=== PATIENT | female | born 1970 | race Caucasian/White ===

== ENCOUNTER → 2018-04-10 15:51 | Outpatient (CLI) | payer OTHER, SELFPAY ==
--- NOTE | 2018-04-10 15:55 | RAD_ITS ---
STUDY: X-RAY - LEFT ANKLE REASON FOR EXAM: Female, 48 years old. Left ankle pain and injury TECHNIQUE: 3 view(s) of the ankle. COMPARISON: None. FINDINGS: Normal visualized distal tibia and fibula. Normal medial and lateral malleoli. Normal tibiotalar articulation and ankle mortise. Normal visualized talus and calcaneus. The visualized subtalar, talonavicular, calcaneocuboid and tarsal articulations are normal. The soft tissue structures are unremarkable. RAD/Ankle min 3 Views IMPRESSION: Normal x-ray examination of the ankle. Electronically Signed: Armando Webber DO at 10:45 EDT Tel , Service support ,
--- NOTE | 2018-04-10 16:03 | RAD_ITS ---
STUDY: X-RAY - LEFT FOOT CLINICAL: Female, 48 years old. Pain and injury TECHNIQUE: 3 view(s) of the foot. COMPARISON: None. FINDINGS: Normal talus, calcaneus, and tarsal bones. Normal visualized subtalar, talonavicular, calcaneocuboid, tarsal and tarsometatarsal articulations. Normal metatarsi. Normal metatarsophalangeal joint of the great toe. Normal tibial and fibular sesamoid bones. Normal interphalangeal joint of the great toe. Normal phalanges of the great toe. Normal second through fifth metatarsophalangeal joints. Normal interphalangeal joints and phalanges of the lesser toes. The soft tissue structures are unremarkable. RAD/Foot min 3 Views IMPRESSION: Normal x-ray examination of the foot. Electronically Signed: Neri Prescott MD at 7:33 EDT Tel , Service support ,
== END ==
LOC: RAD 15:53
PROVIDERS: Family Provider Nurse Practitioner Family; PCP Nurse Practitioner Family; Visit Provider Nurse Practitioner Family
DX: M25.572 Pain in left ankle and joints of left foot (principal)
CPT/HCPCS: 73610; 73630

== ENCOUNTER → 2018-11-30 10:29 | Outpatient (CLI) | payer OTHER, SELFPAY ==
[2018-11-30 10:49] LABS: Absolute Lymphocyte Count 4.36 X10^3/ul (0.83-4.51); Absolute Neutrophil Count 6.3 X10^3/uL (2.0-7.7); Basophil# 0.01 X10^3/uL; Basophil% 0.1 % (0-1); Eosinophil# 0.08 X10^3/uL; Eosinophils% 0.7 % (0-5); Hematocrit 43.7 % (37-47); Lymphocyte # 4.36 X10^3/ul (4.0); Lymphocyte % 37.3 % (19-41); Mean Corp Hgb Conc 34.3 g/gl (32-36); Mean Corpuscular Hgb 33.3 pg (27.0-32.0); Mean Corpuscular Volume 96.9 fL (81-99); Mean Platelet Vol. 9.5 fl (6.2-12.0); Monocyte# 0.96 X10^3/uL; Monocyte% 8.2 % (0-10); Neutrophil # 6.26 X10^3/uL (2.7-7.7); Neutrophil % 53.4 % (47-70); POSITIVE COUNT NO; POSITIVE DIFFERENTIAL NO; POSITIVE MORPHOLOGY NO; Platelet Count 345 K/mm3 (150-450); RBC Distribution Width CV 13.1 % (11.6-14.6); RBC Distribution Width SD 46.1 fl (35.1-43.9); Red Blood Count 4.51 M/mm3 (4.2-5.4); White Blood Count 11.7 K/mm3 (4.4-11.0)
[2018-11-30 11:21] LABS: ALB/GLOB Ratio 0.8 RATIO (0.9-2.4); AST(SGOT) 23 U/L (15-37); Alanine Aminotransfer ALT/SGPT 21 U/L (13-56); Albumin, Serum 3.2 g/dL (3.2-5.0); Alkaline Phosphatase 67 U/L (45-117); Anion Gap 10 (5-15); BUN 19 mg/dL (7-18); BUN/Creat Ratio 17.9 RATIO (10-20); Calcium,Total 8.8 mg/dL (8.5-10.1); Chloride 99 mmol/L (98-107); Creatinine, Serum 1.06 mg/dL (0.55-1.02); EST Glomerular Filtration Rate 59 mL/min (>60); Est Glom Filt Rate - Afr Amer 71 mL/min (>60); Globulin 4.2 g/dL (2.2-4.2); Glucose 120 mg/dL (74-106); Potassium 2.6 mmol/L (3.5-5.1); Protein, Total 7.4 g/dL (6.4-8.2); Sodium Level 140 mmol/L (136-145)
== END ==
LOC: LAB 10:31
PROVIDERS: Family Provider Nurse Practitioner Family; PCP Nurse Practitioner Family; Referring Provider Nurse Practitioner Family; Visit Provider Nurse Practitioner Family
DX: R06.02 Shortness of breath (principal); R06.2 Wheezing
CPT/HCPCS: 36415; 80053; 85025; 85379; A4216

== ENCOUNTER 2018-11-30 12:17 | Emergency (ER) | payer OTHER, SELFPAY ==
[2018-11-30 12:18] VITALS: BP 117/75; PULSE 78; RESP 16; TEMP 36.6; O2SAT 98; BMI 25.7
[2018-11-30 12:47] VITALS: BP 119/85; PULSE 78; RESP 16; TEMP 36.6; O2SAT 94
--- NOTE | 2018-11-30 13:02 | RAD_ITS ---
STUDY: X-RAY CHEST REASON FOR EXAM: Female, 48 years old. Chest pressure, wheezing and cough. TECHNIQUE: PA and lateral views of the chest. COMPARISON: None. FINDINGS: The lungs are clear and expanded. Scattered calcified granulomas. There is no demonstrated pleural abnormality. Normal size heart. Normal mediastinum and adrien. Normal visualized pulmonary arteries. Normal visualized aortic arch and descending thoracic aorta. There is demineralization of the osseous structures. Normal visualized ribs, clavicles, and shoulders. There is no demonstrated abnormality of the visualized soft tissue structures of the upper abdomen. RAD/Chest PA and Lateral IMPRESSION: Normal x-ray examination of the chest. Electronically Signed: Omar Ceja, at 13:48 EDT , Service support ,
--- NOTE | 2018-11-30 13:02 | EKG12_ITS ---
Test Reason : ABNORMAL LABS Blood Pressure : / mmHG Vent. Rate : 079 BPM Atrial Rate : 079 BPM P-R Int : 158 ms QRS Dur : 092 ms QT Int : 380 ms P-R-T Axes : 044 023 -21 degrees QTc Int : 435 ms Normal sinus rhythm Nonspecific T wave abnormality Abnormal ECG Confirmed by LUCÍA FELDMAN ([id number]), fashion editor VAN CURIEL ([id number]) on 12/04/2018 2:09:39 PM Referred By: Yash Vasquez Confirmed By:LUCÍA FELDMAN
--- NOTE | 2018-11-30 13:28 | ED.DCSUM_ITS ---
- ER Visit Summary Date of Service: 11/30/18 Chief Complaint: Abnormal labs History of Present Illness: The patient is a 48 F who presents with hypokalemia that was noted today. Patient had labs drawn this morning and showed a potassium of 2.6. Patient states she was also told she had an elevated white bl ood cell count but was not told what the white blood cell count was. Patient admits to some fatigue. Patient states she has been having a cough and some shortness of breath recently. Patient states she has been using her inhaler more frequently. Patient denies any chest pain. Patient does admit to some rhinorrhea. Patient also admits to a headache. Physical Examination: Vital signs are stable. Patient is afebrile. Patient is in no acute distress. Oral mucosa is pink and moist. Neck is supple. Trachea is midline. There is no JVD noted. Heart was regular rate and rhythm. Lungs are clear and equal bilateral. Abdomen is soft. Bowel sounds are normal. There is no tenderness. There is no guarding noted. Skin is warm dry. Cranial nerves II through XII are intact. There are no focal motor or sensory deficits noted. The remaining physical exam is within normal limits. Test Results: Lab results were done here and were reviewed. Potassium was 2.6. White blood cell count was 11.2. PA and lateral chest x-ray was obtained. There is no acute cardiopulmonary process noted. EKG showed normal sinus rhythm with a rate of 79. There are nonspecific ST-T wave changes noted. There are no acute changes with the T waves. Emergency Department Course and Treatment: Patient was given 10 mEq of IV potassium and 40 mEq of oral potassium. Patient was advised that her potassium was likely low due to her increased use of her inhaler. Patient was advised that her cough is most likely related to a viral upper respiratory infection. Patient was instructed to follow-up with her primary care physician in 5 to 7 days. Patient understood and was agreeable with the plan. All questions were a nswered. Disposition: Discharge home Impression: 1. Hypokalemia 2. Viral upper respiratory infection This note was generated with inContactation software. It may contain incorrect words, spelling, and punctuation that were not noted in review of the chart prior to signing ED Disposition - Plan for ED Patient: Disposition: Home or Assisted Living Diagnosis: Hypokalemia, Viral upper respiratory infection Referrals: Yash Vasquez, [employer] SERV[employer] CAPTAIN-C [Primary Care Provider] - 5-7 Days
[2018-11-30] MEDS: Potassium Chloride 10mEq/100mL 10 MEQ/100 ML IV.SOLN. 100 MEQ IV BOLUS (14:02)
[2018-11-30 15:11] VITALS: BP 132/89; PULSE 75; RESP 20; TEMP 37; O2SAT 95
[2018-11-30 15:57] VITALS: BP 110/79; PULSE 84; RESP 16; O2SAT 94
== END 2018-11-30 15:58 | disposition home or self-care (01) ==
PROVIDERS: Emergency Provider Emergency Medicine; Family Provider Nurse Practitioner Family; PCP Nurse Practitioner Family
DX: E87.6 Hypokalemia (principal); J06.9 Acute upper respiratory infection, unspecified; J45.909 Unspecified asthma, uncomplicated; G43.909 Migraine, unspecified, not intractable, without status migrainosus; Z72.0 Tobacco use
CPT/HCPCS: 71046; 93005; 96365; 99285

== ENCOUNTER → 2020-03-07 | Outpatient (CLI) | payer BC, SELFPAY | END | disposition home or self-care (01) | LOC: MTDU 18:02 | PROVIDERS: PCP Nurse Practitioner Family; Referring Provider Nurse Practitioner Family; Visit Provider Nurse Practitioner Family | DX: Z20.828 Contact with and (suspected) exposure to other viral communicable diseases (principal) | CPT/HCPCS: 87635; 94799; U0003 ==

== ENCOUNTER 2020-05-02 14:31 | Emergency (ER) | payer BC, SELFPAY ==
[2020-05-02 14:33] VITALS: BP 129/79; PULSE 88; RESP 18; TEMP 36.7; O2SAT 97; BMI 23.4
--- NOTE | 2020-05-02 14:45 | ED.DCSUM_ITS ---
History of Present Illness Chief Complaint: Headache Informant: Patient Onset: Days Narrative: A 10-year-old female with past medical history of migraines presents with complaint of tractable migraine x3 days. She has pain in a band distribution that is throbbing. She has nausea and dry heaves with photophobia and phonophobia. She states this is typical to previous headaches, but this time she was not able to keep down her Maxalt. She has had CT brain in the past 1-2 years for this and it was normal. Denies fevers, chills, neck pain, vision changes, or focal motor or sensory changes. Past Medical History - Allergies and Home Meds Allergies/Adverse Reactions: Allergies Penicillins [PCN] Allergy (Verified 05/02/20 14:35) Hives erythromycin base Adverse Reaction (Verified 05/02/20 14:35) Vomiting Primary Care Physician: Yash Vasquez SILVERWARE SUPERVISOR, SILVERWARE SUPERVISOR-C [Primary Care Provider] - Past Medical History: - - migraines Smoking Status: Current every day smoker Review of Systems General: Denies: Chills, Fever, Sweats Eyes: Denies: Visual changes - bilaterally, Diplopia ENT: Denies: Rhinorrhea, Sore throat Cardiovascular: Denies: Chest pain, Palpitations Respiratory: Denies: Dyspnea, Cough, Dyspnea on exertion Gastrointestinal: Reports: Nausea, Vomiting. Denies: Abdominal pain, Diarrhea, Melena, Hematochezia Musculoskeletal: Denies: Neck pain Skin: Denies: Rash Neurological: Reports: Headache. Denies: Weakness, Parasthesia, Numbness Physical Exam Vital Signs/Narrative: Vital Signs Temp Pulse Resp BP Pulse Ox 05/02/20 14:33 98.0 F 88 18 129/79 H 97 Inital Vital Signs reviewed: Yes General: Well nourished, Well developed, No Acute Distress Head: Normocephalic, Atraumatic Eyes: Perrl, EOMI ENT: Moist mucous membranes, No rhinorrhea Neck: Supple, Nontender Cardiovascular: Regular rate, Regular rhythm, No murmurs Respiratory: No distress, CTA bilaterally, Chest nontender Back: Normal Inspection Extremities: No edema Skin: Normal color, No rash Neurological: Alert, Oriented x3, Cranial nerves II-XII grossly intact, Normal Strength, Normal Sensation Psychological: Normal affect, Normal Mood Diagnostic/Tx/Re-eval - Medical Decision Making Her with a migraine similar to her previous migraines in the past. She appears uncomfortable but nontoxic. Vital signs within normal limits. Normal neurological exam. She states she has had a normal head CT within the last 1 to 2 years. No indication for repeat imaging here today. She was given IV cocktail of Toradol, Compazine, Benadryl, and fluids and is feeling significantly improved. I provided prescription for Zofran in case she has this recur again she can take this before her home Maxalt. Discussed return precautions. She was agreeable and discharged home in stable condition. ED Disposition - Plan for ED Patient: Disposition: Home or Assisted Living Diagnosis: Migraine Instructions: ED Headache Unspecified Prescriptions: Ondansetron [Zofran Odt] 4 mg PO Q8H PRN PRN #10 tab PRN Reason: Nausea Transmission Status: Pending to [id number] Referrals: Yash Vasquez SILVERWARE SUPERVISOR, SILVERWARE SUPERVISOR-C [Primary Care Provider] -
[2020-05-02] MEDS: 0.9% Normal Saline 1,000 ML 999 ML IV (15:07)
[2020-05-02] MEDS: proCHLORPERazine 10 MG/2 ML Vial IV (15:07)
[2020-05-02] MEDS: DiphenhydrAMINE 50 MG/ML Syringe 25 MG IV (15:07)
[2020-05-02] MEDS: Ketorolac 15 MG/ML Vial IM (15:08)
[2020-05-02 16:00] VITALS: BP 102/69; PULSE 75; RESP 16; O2SAT 99
== END 2020-05-02 16:14 | disposition home or self-care (01) ==
PROVIDERS: Emergency Provider Physician Assistant; PCP Nurse Practitioner Family
DX: G43.909 Migraine, unspecified, not intractable, without status migrainosus (principal); F17.200 Nicotine dependence, unspecified, uncomplicated; Z79.899 Other long term (current) drug therapy
CPT/HCPCS: 96361; 96372; 96374; 96375; 99282; J7030; A4216

== ENCOUNTER → 2020-09-15 15:43 | Outpatient (CLI) | payer OTHER, SELFPAY ==
[2020-09-15 16:25] LABS: Hematocrit 41.5 % (37-47); Hemoglobin 13.5 g/dL (12.0-15.0); Mean Corp Hgb Conc 32.5 g/dL (32-36); Mean Corpuscular Hgb 30.7 pg (27.0-32.0); Mean Corpuscular Volume 94.3 fL (81-99); Mean Platelet Vol. 10.9 fl (6.2-12.0); Platelet Count 268 K/mm3 (150-450); RBC Distribution Width CV 12.9 % (11.6-14.6); RBC Distribution Width SD 44.8 fl (35.1-43.9); White Blood Count 8.4 K/mm3 (4.4-11.0)
[2020-09-15 18:30] LABS: ALB/GLOB Ratio 1.2 RATIO (0.9-2.4); AST(SGOT) 24 U/L (15-37); Alanine Aminotransfer ALT/SGPT 25 U/L (13-56); Albumin, Serum 3.7 g/dL (3.2-5.0); Alkaline Phosphatase 54 U/L (45-117); Anion Gap 7 (5-15); BUN 20 mg/dL (7-18); BUN/Creat Ratio 25.8 RATIO (10-20); Calcium,Total 8.9 mg/dL (8.5-10.1); Chloride 100 mmol/L (98-107); Cholesterol 199 mg/dL (200); Creatinine, Serum 0.78 mg/dL (0.55-1.02); EST Glomerular Filtration Rate 84 mL/min (>60); Est Glom Filt Rate - Afr Amer 101 mL/min (>60); Globulin 3.2 g/dL (2.2-4.2); Glucose 86 mg/dL (74-106); High Density Lipoprotein 72 mg/dL; Potassium 2.6 mmol/L (3.5-5.1); Protein, Total 6.9 g/dL (6.4-8.2); Sodium Level 138 mmol/L (136-145); Triglycerides 74 mg/dL; Very Low Density Lipoprotein 15 mg/dL (5-40)
== END ==
PROVIDERS: PCP Nurse Practitioner Family; Referring Provider Nurse Practitioner Family; Visit Provider Nurse Practitioner Family
DX: I10 Essential (primary) hypertension (principal); E78.5 Hyperlipidemia, unspecified
CPT/HCPCS: 36415; 80053; 80061; 85027

== ENCOUNTER 2020-09-24 08:02 | Emergency (ER) | payer OTHER, SELFPAY ==
[2020-09-24 08:02] VITALS: BP 117/73; PULSE 78; RESP 16; TEMP 36.2; O2SAT 99; BMI 24.0
--- NOTE | 2020-09-24 08:32 | ED.DCSUM_ITS ---
History of Present Illness Chief Complaint: Dizziness Narrative: Patient presenting for evaluation secondary to dizziness and a headache. Patient has an underlying history of migraine headaches. She intermittently will get these. Patient states that she is having a onset of a migraine headache today that is associated with a frontal throbbing and some visual auras. She was concerned because this also was associated with dizziness. She describes this dizziness as a lightheadedness type sensation, denies that she has any cuts in her visual harden, difficulty speaking, numbness, or weakness. No recent head injuries infectious signs or symptoms neck stiffness or skin rashes. Patient tells me that she has a history of poor fluid intake and also potentially gets low potassium from time to time and she feels that that could be the cause of this. She denies any chest pain or palpitations associated with this. Review of systems otherwise negative. Past Medical History - Allergies and Home Meds Allergies/Adverse Reactions: Allergies Penicillins [PCN] Allergy (Verified 09/24/20 08:04) Hives erythromycin base Adverse Reaction (Verified 09/24/20 08:04) Vomiting Primary Care Physician: Yash Vasquez CIGARET[employer] CARTON SEALER, C[employer]AR[employer] CARTON SEALER-C [Primary Care Provider] - Prior records reviewed: Yes Past Medical History: - - Migraine headaches Smoking Status: Current every day smoker Alcohol: None Drugs: None Review of Systems All systems negative except as indicated General: Denies: Chills, Fever, Sweats Eyes: Reports: - - Visual auras ENT: Denies: Rhinorrhea, Sore throat Cardiovascular: Denies: Chest pain, Palpitations Respiratory: Denies: Dyspnea, Cough, Dyspnea on exertion Gastrointestinal: Denies: Abdominal pain, Nausea, Vomiting, Diarrhea, Melena, Hematochezia Genitourinary: Denies: Dysuria, Hematuria, Frequency Musculoskeletal: Denies: Back pain, Extremity Pain Skin: Denies: Rash, Wounds Neurological: Reports: Headache, - - Dizziness Physical Exam Vital Signs/Narrative: Vital Signs Temp Pulse Resp BP Pulse Ox 09/24/20 08:02 97.2 F L 78 16 117/73 99 General: Well nourished, Well developed Head: NC, AT. Negative for: Temporary Artery Tenderness, Vesicular Rash, Sinus Tenderness Eyes: Perrl, EOMI, - - Funduscopy is limited secondary to miosis but no obvious evidence of retinal hemorrhages ENT: Moist mucous membranes, No rhinorrhea, - - No carotid bruits are noted Neck: Supple, No Lymphadenopathy, No JVD, Nontender, No Meningismus Cardiovascular: Regular rate, Regular rhythm, No murmurs Respiratory: No distress, CTA bilaterally, Chest nontender Abdomen: Soft, Nontender, Nondistended, Normal bowel sounds Back: Nontender, Normal Inspection Extremities: Nontender, No edema Skin: Normal color, No rash Neuro: Alert, Oriented x3, Cranial nerves II-XII grossly intact, Normal Strength, Normal Sensation, Normal DTR, Normal Gait Psychological: Normal affect Diagnostic/Tx/Re-eval Laboratory Data 09/24/20 09/24/20 08:42 08:42 WBC 6.8 RBC 4.39 Hgb 13.4 Hct 41.7 MCV 95.0 MCH 30.5 MCHC 32.1 RDW Std Deviation 45.9 H RDW Coeff of Teresa 13.1 Plt Count 298 MPV 10.3 Immature Gran % (Auto) 0.100 Neut % (Auto) 47.9 Lymph % (Auto) 36.4 [place] % (Auto) 7.6 Eos % (Auto) 6.7 H Baso % (Auto) 1.3 H Absolute Neuts (auto) 3.3 Absolute Lymphs (auto) 2.48 Nucleated RBC % 0 Sodium 142 Potassium 3.2 L Chloride 106 Carbon Dioxide 30.0 Anion Gap 6 BUN 8 Creatinine 0.79 Estim Creat Clear Calc 74.39 Est GFR (MDRD) Af Amer 99 Est GFR (MDRD) Non-Af 82 BUN/Creatinine Ratio 10.1 Glucose 106 Calcium 8.8 - Medical Decision Making Patient presented secondary to an onset of a headache with some lightheadedness. She has normal cerebellar testing, normal [id number], and an otherwise benign exam I do not feel that imaging work-up is indicated. Laboratory work-up did indicate the patient to have very mild hypokalemia of which she was informed. Patient was treated with Benadryl Compazine Toradol and 1 L normal saline. Repeat evaluation of the patient at 0920 shows her to have symptomatic improvement. This point I feel the patient is appropriate for discharge. Patient will follow-up with primary care. ED Disposition - Plan for ED Patient: Disposition: Home or Assisted Living Diagnosis: Migraine headache Referrals: Yash Vasquez CIGARET[employer] CARTON SEALER, C[employer]ARET[employer] CARTON SEALER-C [Primary Care Provider] - As Needed
[2020-09-24] MEDS: Ketorolac 15 MG/ML Vial IV (08:40)
[2020-09-24] MEDS: 0.9% Normal Saline 1,000 ML 999 ML IV (08:40)
[2020-09-24] MEDS: DiphenhydrAMINE 50 MG/ML Syringe 25 MG IV (08:42)
[2020-09-24] MEDS: proCHLORPERazine 10 MG/2 ML Vial IV (08:42)
[2020-09-24 08:49] LABS: Absolute Lymphocyte Count 2.48 X10^3/uL (0.83-4.51); Absolute Neutrophil Count 3.3 X10^3/uL (2.0-7.7); Basophil# 0.09 X10^3/uL; Basophil% 1.3 % (0-1); Eosinophil# 0.46 X10^3/uL; Eosinophils% 6.7 % (0-5); Hematocrit 41.7 % (37-47); Hemoglobin 13.4 g/dL (12.0-15.0); Lymphocyte # 2.48 X10^3/ul (4.0); Lymphocyte % 36.4 % (19-41); Mean Corp Hgb Conc 32.1 g/dL (32-36); Mean Corpuscular Hgb 30.5 pg (27.0-32.0); Mean Platelet Vol. 10.3 fl (6.2-12.0); Monocyte# 0.52 X10^3/uL; Monocyte% 7.6 % (0-10); NRBC Flagged by Analyzer 0 % (0-5); Neutrophil # 3.26 X10^3/uL (2.7-7.7); Neutrophil % 47.9 % (47-70); Platelet Count 298 K/mm3 (150-450); RBC Distribution Width CV 13.1 % (11.6-14.6); RBC Distribution Width SD 45.9 fl (35.1-43.9); Red Blood Count 4.39 M/mm3 (4.2-5.4); White Blood Count 6.8 K/mm3 (4.4-11.0)
[2020-09-24 09:00] LABS: Anion Gap 6 (5-15); BUN 8 mg/dL (7-18); BUN/Creat Ratio 10.1 RATIO (10-20); Calcium,Total 8.8 mg/dL (8.5-10.1); Chloride 106 mmol/L (98-107); Creatinine, Serum 0.79 mg/dL (0.55-1.02); EST Glomerular Filtration Rate 82 mL/min (>60); Est Glom Filt Rate - Afr Amer 99 mL/min (>60); Estimated Creatinine Clearance 74.39 ml/min; Glucose 106 mg/dL (74-106); Potassium 3.2 mmol/L (3.5-5.1); Sodium Level 142 mmol/L (136-145)
[2020-09-24 10:06] VITALS: BP 108/74; PULSE 62; RESP 15; O2SAT 98
== END 2020-09-24 10:07 | disposition home or self-care (01) ==
PROVIDERS: Emergency Provider Emergency Medicine; PCP Nurse Practitioner Family
DX: G43.909 Migraine, unspecified, not intractable, without status migrainosus (principal); F17.200 Nicotine dependence, unspecified, uncomplicated
CPT/HCPCS: 80048; 85025; 96361; 96374; 96375; 99283; J7030

== ENCOUNTER → 2021-01-23 15:20 | Outpatient (CLI) | payer OTHER, SELFPAY ==
[2021-01-23 15:58] LABS: Hematocrit 44.9 % (37-47); Hemoglobin 15.1 g/dL (12.0-15.0); Mean Corp Hgb Conc 33.6 g/dL (32-36); Mean Corpuscular Hgb 32.3 pg (27.0-32.0); Mean Corpuscular Volume 95.9 fL (81-99); Mean Platelet Vol. 11.1 fl (6.2-12.0); Platelet Count 251 K/mm3 (150-450); RBC Distribution Width CV 12.9 % (11.6-14.6); RBC Distribution Width SD 45.7 fl (35.1-43.9); Red Blood Count 4.68 M/mm3 (4.2-5.4); White Blood Count 8.6 K/mm3 (4.4-11.0)
[2021-01-23 16:44] LABS: AST(SGOT) 19 U/L (15-37); Alanine Aminotransfer ALT/SGPT 21 U/L (13-56); Albumin, Serum 3.5 g/dL (3.2-5.0); Alkaline Phosphatase 67 U/L (45-117); Anion Gap 9 (5-15); BUN 15 mg/dL (7-18); BUN/Creat Ratio 16.8 RATIO (10-20); Calcium,Total 8.7 mg/dL (8.5-10.1); Chloride 101 mmol/L (98-107); Creatinine, Serum 0.89 mg/dL (0.55-1.02); EST Glomerular Filtration Rate 71 mL/min (>60); Est Glom Filt Rate - Afr Amer 86 mL/min (>60); Globulin 3.6 g/dL (2.2-4.2); Glucose 96 mg/dL (74-106); Potassium 3.1 mmol/L (3.5-5.1); Protein, Total 7.1 g/dL (6.4-8.2); Sodium Level 137 mmol/L (136-145); T4 Free Direct 1.06 ng/dL (0.76-1.46); Thyroid Stim Hormone (TSH) 0.78 uIU/mL (0.358-3.74)
== END ==
PROVIDERS: PCP Nurse Practitioner Family; Visit Provider Nurse Practitioner Family
DX: G43.009 Migraine without aura, not intractable, without status migrainosus (principal); E87.6 Hypokalemia; R53.82 Chronic fatigue, unspecified; R68.89 Other general symptoms and signs
CPT/HCPCS: 36415; 80053; 84439; 84443; 85027

== ENCOUNTER → 2021-03-18 15:45 | Outpatient (CLI) | payer OTHER, SELFPAY ==
[2021-03-18 17:14] LABS: Hematocrit 42.7 % (37-47); Hemoglobin 14.8 g/dL (12.0-15.0); Mean Corp Hgb Conc 34.7 g/dL (32-36); Mean Corpuscular Hgb 33.1 pg (27.0-32.0); Mean Corpuscular Volume 95.5 fL (81-99); Mean Platelet Vol. 11.1 fl (6.2-12.0); Platelet Count 260 K/mm3 (150-450); RBC Distribution Width CV 13.2 % (11.6-14.6); RBC Distribution Width SD 46.6 fl (35.1-43.9); Red Blood Count 4.47 M/mm3 (4.2-5.4); White Blood Count 9.6 K/mm3 (4.4-11.0)
[2021-03-18 17:39] LABS: AST(SGOT) 18 U/L (15-37); Alanine Aminotransfer ALT/SGPT 24 U/L (13-56); Albumin, Serum 3.9 g/dL (3.2-5.0); Alkaline Phosphatase 57 U/L (45-117); Anion Gap 8 (5-15); BUN 18 mg/dL (7-18); BUN/Creat Ratio 21.4 RATIO (10-20); Calcium,Total 9.4 mg/dL (8.5-10.1); Chloride 99 mmol/L (98-107); Cholesterol 239 mg/dL (200); Creatinine, Serum 0.84 mg/dL (0.55-1.02); EST Glomerular Filtration Rate 76 mL/min (>60); Est Glom Filt Rate - Afr Amer 92 mL/min (>60); Globulin 3.9 g/dL (2.2-4.2); Glucose 88 mg/dL (74-106); High Density Lipoprotein 85 mg/dL; Potassium 2.9 mmol/L (3.5-5.1); Protein, Total 7.8 g/dL (6.4-8.2); Sodium Level 136 mmol/L (136-145); Triglycerides 121 mg/dL; Very Low Density Lipoprotein 24 mg/dL (5-40)
== END ==
PROVIDERS: PCP Nurse Practitioner Family; Visit Provider Nurse Practitioner Family
DX: E78.5 Hyperlipidemia, unspecified (principal); I10 Essential (primary) hypertension
CPT/HCPCS: 36415; 80053; 80061; 85027

== ENCOUNTER → 2021-05-04 | Outpatient (CLI) | payer OTHER, SELFPAY | END | disposition home or self-care (01) | LOC: LABSPEC 05-05 13:48 | PROVIDERS: PCP Nurse Practitioner Family; Referring Provider Physician Assistant Surgical; Visit Provider Physician Assistant Surgical | DX: Z11.52 Encounter for screening for COVID-19 (principal) | CPT/HCPCS: 87635; U0005; U0003 ==

== ENCOUNTER → 2022-03-25 | Outpatient (CLI) | payer BC, SELFPAY ==
[2022-03-25 15:59] LABS: Hematocrit 46.8 % (37-47); Hemoglobin 15.7 g/dL (12.0-15.0); Mean Corp Hgb Conc 33.5 g/dL (32-36); Mean Corpuscular Hgb 31.2 pg (27.0-32.0); Mean Platelet Vol. 10.8 fl (6.2-12.0); Platelet Count 238 K/mm3 (150-450); RBC Distribution Width CV 14.6 % (11.6-14.6); RBC Distribution Width SD 50.1 fl (35.1-43.9); Red Blood Count 5.03 M/mm3 (4.2-5.4); White Blood Count 6.6 K/mm3 (4.4-11.0)
[2022-03-25 16:40] LABS: AST(SGOT) 19 U/L (15-37); Alanine Aminotransfer ALT/SGPT 21 U/L (13-56); Albumin, Serum 3.6 g/dL (3.2-5.0); Alkaline Phosphatase 67 U/L (45-117); Anion Gap 8 (5-15); BUN 15 mg/dL (7-18); BUN/Creat Ratio 17.1 RATIO (10-20); Calcium,Total 9.2 mg/dL (8.5-10.1); Chloride 98 mmol/L (98-107); Cholesterol 223 mg/dL (200); Creatinine, Serum 0.88 mg/dL (0.55-1.02); EST Glomerular Filtration Rate 72 mL/min (>60); Est Glom Filt Rate - Afr Amer 87 mL/min (>60); Globulin 3.5 g/dL (2.2-4.2); Glucose 101 mg/dL (74-106); High Density Lipoprotein 76 mg/dL; Potassium 2.6 mmol/L (3.5-5.1); Protein, Total 7.1 g/dL (6.4-8.2); Sodium Level 140 mmol/L (136-145); Triglycerides 80 mg/dL; Very Low Density Lipoprotein 16 mg/dL (5-40)
== END | disposition home or self-care (01) ==
LOC: LAB 15:16
PROVIDERS: PCP Nurse Practitioner Family; Referring Provider Nurse Practitioner Family; Visit Provider Nurse Practitioner Family
DX: J44.9 Chronic obstructive pulmonary disease, unspecified (principal); D58.2 Other hemoglobinopathies; E78.5 Hyperlipidemia, unspecified; E87.6 Hypokalemia; I10 Essential (primary) hypertension; J30.2 Other seasonal allergic rhinitis
CPT/HCPCS: 36415; 80053; 80061; 85027

== ENCOUNTER → 2022-08-06 | Outpatient (CLI) | payer BC, SELFPAY ==
[2022-08-06 15:33] LABS: Hematocrit 46.6 % (37-47); Hemoglobin 15.7 g/dL (12.0-15.0); Mean Corp Hgb Conc 33.7 g/dL (32-36); Mean Corpuscular Hgb 31.9 pg (27.0-32.0); Mean Corpuscular Volume 94.7 fL (81-99); Mean Platelet Vol. 10.8 fl (6.2-12.0); Platelet Count 245 K/mm3 (150-450); RBC Distribution Width CV 14.1 % (11.6-14.6); RBC Distribution Width SD 49.3 fl (35.1-43.9); Red Blood Count 4.92 M/mm3 (4.2-5.4)
[2022-08-06 16:02] LABS: AST(SGOT) 21 U/L (15-37); Alanine Aminotransfer ALT/SGPT 25 U/L (13-56); Albumin, Serum 3.7 g/dL (3.2-5.0); Alkaline Phosphatase 64 U/L (45-117); Anion Gap 5 (5-15); BUN 16 mg/dL (7-18); BUN/Creat Ratio 21.6 RATIO (10-20); CRP < 2.90 mg/L (0.0-3.0); Calcium,Total 9.1 mg/dL (8.5-10.1); Chloride 98 mmol/L (98-107); Creatinine, Serum 0.74 mg/dL (0.55-1.02); EST Glomerular Filtration Rate 88 mL/min (>60); Est Glom Filt Rate - Afr Amer 106 mL/min (>60); Globulin 3.7 g/dL (2.2-4.2); Glucose 117 mg/dL (74-106); Potassium 3.1 mmol/L (3.5-5.1); Protein, Total 7.4 g/dL (6.4-8.2); Sodium Level 137 mmol/L (136-145); Thyroid Stim Hormone (TSH) 1.62 uIU/mL (0.358-3.74)
== END | disposition home or self-care (01) ==
LOC: LAB 15:10
PROVIDERS: PCP Nurse Practitioner Family; Visit Provider Nurse Practitioner Family
DX: R53.83 Other fatigue (principal); R42 Dizziness and giddiness; E87.6 Hypokalemia; I49.9 Cardiac arrhythmia, unspecified; R00.2 Palpitations
CPT/HCPCS: 36415; 80053; 84443; 85027; 86140

== ENCOUNTER → 2022-09-28 | Outpatient (CLI) | payer BC, SELFPAY ==
[2022-09-28 11:28] LABS: Hematocrit 46.9 % (37-47); Hemoglobin 15.6 g/dL (12.0-15.0); Mean Corp Hgb Conc 33.3 g/dL (32-36); Mean Corpuscular Hgb 32.8 pg (27.0-32.0); Mean Corpuscular Volume 98.5 fL (81-99); Platelet Count 257 K/mm3 (150-450); RBC Distribution Width CV 13.6 % (11.6-14.6); RBC Distribution Width SD 49.7 fl (35.1-43.9); Red Blood Count 4.76 M/mm3 (4.2-5.4); White Blood Count 7.5 K/mm3 (4.4-11.0)
[2022-09-28 12:02] LABS: Vitamin D,25 Hydroxy 8.6 ng/mL
[2022-09-28 12:03] LABS: ALB/GLOB Ratio 1.1 RATIO (0.9-2.4); AST(SGOT) 31 U/L (15-37); Alanine Aminotransfer ALT/SGPT 27 U/L (13-56); Albumin, Serum 3.7 g/dL (3.2-5.0); Alkaline Phosphatase 72 U/L (45-117); Anion Gap 8 (5-15); BUN 14 mg/dL (7-18); BUN/Creat Ratio 16.9 RATIO (10-20); Calcium,Total 9.3 mg/dL (8.5-10.1); Chloride 99 mmol/L (98-107); Cholesterol 229 mg/dL (200); Creatinine, Serum 0.83 mg/dL (0.55-1.02); EST Glomerular Filtration Rate 77 mL/min (>60); Est Glom Filt Rate - Afr Amer 94 mL/min (>60); Globulin 3.5 g/dL (2.2-4.2); Glucose 108 mg/dL (74-106); High Density Lipoprotein 87 mg/dL; Potassium 3.1 mmol/L (3.5-5.1); Protein, Total 7.2 g/dL (6.4-8.2); Sodium Level 138 mmol/L (136-145); Triglycerides 73 mg/dL; Very Low Density Lipoprotein 15 mg/dL (5-40)
== END | disposition home or self-care (01) ==
LOC: LAB 10:30
PROVIDERS: PCP Nurse Practitioner Family; Referring Provider Nurse Practitioner Family; Visit Provider Nurse Practitioner Family
DX: I10 Essential (primary) hypertension (principal); J44.9 Chronic obstructive pulmonary disease, unspecified; D58.2 Other hemoglobinopathies; E78.5 Hyperlipidemia, unspecified; E87.6 Hypokalemia
CPT/HCPCS: 36415; 80053; 80061; 82306; 85027

== ENCOUNTER → 2023-04-07 | Outpatient (CLI) | payer BC, SELFPAY ==
[2023-04-07 11:52] LABS: Vitamin D,25 Hydroxy 40.8 ng/mL
[2023-04-07 11:57] LABS: AST(SGOT) 33 U/L (15-37); Alanine Aminotransfer ALT/SGPT 29 U/L (13-56); Albumin, Serum 3.5 g/dL (3.2-5.0); Alkaline Phosphatase 72 U/L (45-117); Anion Gap 4 (5-15); BUN 12 mg/dL (7-18); BUN/Creat Ratio 15.5 RATIO (10-20); Calcium,Total 8.9 mg/dL (8.5-10.1); Chloride 101 mmol/L (98-107); Creatinine, Serum 0.77 mg/dL (0.55-1.02); EST Glomerular Filtration Rate 83 mL/min (>60); Est Glom Filt Rate - Afr Amer 101 mL/min (>60); Globulin 3.6 g/dL (2.2-4.2); Glucose 111 mg/dL (74-106); Potassium 3.6 mmol/L (3.5-5.1); Protein, Total 7.1 g/dL (6.4-8.2); Sodium Level 138 mmol/L (136-145)
[2023-04-07 12:04] LABS: Microalbumin,Random Urine 70.6 mg/L (NO RANGE EST.); Microalbumin:Creatinine Ratio 46.8 mg/g CRE (<30 mg/g CRE)
== END | disposition home or self-care (01) ==
LOC: LAB 09:54
PROVIDERS: PCP Nurse Practitioner Family; Referring Provider Nurse Practitioner Family; Visit Provider Nurse Practitioner Family
DX: E55.9 Vitamin D deficiency, unspecified (principal); J44.9 Chronic obstructive pulmonary disease, unspecified; D58.2 Other hemoglobinopathies; I10 Essential (primary) hypertension; E78.5 Hyperlipidemia, unspecified; E87.6 Hypokalemia
CPT/HCPCS: 36415; 80053; 82043; 82306; 82570

== ENCOUNTER → 2024-02-16 | Outpatient (CLI) | payer SELFPAY ==
[2024-02-16 10:23] LABS: Hematocrit 50.6 % (37-47); Hemoglobin 17.3 g/dL (12.0-15.0); Mean Corp Hgb Conc 34.2 g/dL (32-36); Mean Corpuscular Hgb 32.7 pg (27.0-32.0); Mean Corpuscular Volume 95.7 fL (81-99); Mean Platelet Vol. 11.4 fl (6.2-12.0); Platelet Count 216 K/mm3 (150-450); RBC Distribution Width CV 12.2 % (11.6-14.6); RBC Distribution Width SD 43.3 fl (35.1-43.9); Red Blood Count 5.29 M/mm3 (4.2-5.4); White Blood Count 6.8 K/mm3 (4.4-11.0)
[2024-02-16 10:46] LABS: Hemoglobin A1c 5.7 % (3.8-5.6)
[2024-02-16 10:50] LABS: Microalbumin,Random Urine 17.2 mg/L (NO RANGE EST.); Microalbumin:Creatinine Ratio 6.6 mg/g CRE (<30 mg/g CRE)
[2024-02-16 10:51] LABS: AST(SGOT) 23 U/L (15-37); Alanine Aminotransfer ALT/SGPT 23 U/L (13-56); Albumin, Serum 3.7 g/dL (3.2-5.0); Alkaline Phosphatase 80 U/L (45-117); Anion Gap 6 (5-15); BUN 13 mg/dL (7-18); BUN/Creat Ratio 13.3 RATIO (10-20); Chloride 100 mmol/L (98-107); Cholesterol 229 mg/dL (200); Creatinine, Serum 0.98 mg/dL (0.55-1.02); EST Glomerular Filtration Rate 63 mL/min (>60); Est Glom Filt Rate - Afr Amer 77 mL/min (>60); Globulin 3.8 g/dL (2.2-4.2); Glucose 118 mg/dL (74-106); High Density Lipoprotein 75 mg/dL; Potassium 3.4 mmol/L (3.5-5.1); Protein, Total 7.5 g/dL (6.4-8.2); Sodium Level 139 mmol/L (136-145); Triglycerides 118 mg/dL; Very Low Density Lipoprotein 24 mg/dL (5-40)
[2024-02-16 10:52] LABS: Vitamin D,25 Hydroxy 47.4 ng/mL
== END | disposition home or self-care (01) ==
LOC: LAB 09:38
PROVIDERS: PCP Nurse Practitioner Family; Referring Provider Nurse Practitioner Family; Visit Provider Nurse Practitioner Family
DX: I10 Essential (primary) hypertension (principal); R73.01 Impaired fasting glucose; E78.5 Hyperlipidemia, unspecified; E55.9 Vitamin D deficiency, unspecified; D75.1 Secondary polycythemia
CPT/HCPCS: 36415; 80053; 80061; 82043; 82306; 82570; 83036; 85027